=== PATIENT | male | born 1970 | race Caucasian/White ===

== ENCOUNTER 2018-03-21 18:51 | Emergency (ER) | payer BC ==
--- NOTE | 2018-03-21 19:33 | EDM.PDOC ---
ED HPI GENERAL MEDICAL PROBLEM - General Chief Complaint: Abdominal Pain Stated Complaint: LOWER LT QUADRANT PAIN Time Seen by Provider: 03/21/18 19:23 Source of Information: Reports: Patient, RN Notes Reviewed History Limitations: Reports: No Limitations - History of Present Illness INITIAL COMMENTS - FREE TEXT/NARRATIVE: 47-year-old gentleman presents to the emergency department with complaint of abdominal pain left lower quadrant he is traveling from [place] states the pain really started this morning has progressively gotten worse does have a history of urinary tract infection a couple years ago which presented similarly treated with antibiotics and improved he has never had a colonoscopy only surgery is an appendectomy 20 years ago. He is experiencing nausea pain is worse with ambulation Left Lower Abdomen Pain Score (Numeric/FACES): 10 - Related Data Allergies Allergy/AdvReac Type Severity Reaction Status Date / Time No Known Allergies Allergy Verified 03/21/18 19:15 Home Meds: Home Meds NK [No Known Home Meds] 03/21/18 [History] Past Medical History - Past Surgical History HEENT Surgical History: Reports: Adenoidectomy, Tonsillectomy, Other (See Below) Other HEENT Surgeries/Procedures: R ear surgery to fix growth of skin. GI Surgical History: Reports: Appendectomy Musculoskeletal Surgical History: Reports: Arthroscopic Knee Social & Family History - Tobacco Use Smoking Status *Q: Never Smoker - Recreational Drug Use Recreational Drug Use: No ED ROS GENERAL - Review of Systems Review Of Systems: See Below Constitutional: Reports: Fever. Denies: Chills HEENT: Reports: No Symptoms Respiratory: Reports: No Symptoms Cardiovascular: Reports: No Symptoms GI/Abdominal: Reports: Abdominal Pain, Nausea. Denies: Constipation, Diarrhea, Flatus, Vomiting : Reports: No Symptoms Musculoskeletal: Reports: No Symptoms Skin: Reports: No Symptoms Neurological: Reports: No Symptoms ED EXAM, GI/ABD - Physical Exam Exam: See Below Text/Narrative:: General: Male, not in any distress, alert and oriented x3 HEENT: head is atraumatic normocephalic, eyes pupils equal round reactive to light, sclera clear no conjunctivitis appreciated. Ears tympanic membranes clear and fraser landmarks and light reflex are present bilaterally canals are clear. Nose no septal deviation, nares are clear, no blood present. Mouth mucosa is moist and pink no erythema or exudate noted in soft palate, tongue is midline uvula is midline, dentition is intact. Neck: Supple no thyromegaly no tracheal deviation. Nodes: Cervical nodes subclavicular nodes nontender no palpable lymphadenopathy noted. Lungs: clear to auscultation bilaterally with symmetrical respirations, no adventitious noise appreciated. CV: Regular rate and rhythm S1 and S2 appreciated no murmurs rubs or gallops noted. Abdomen: Soft, tender left lower quadrant, no palpable masses or organomegaly appreciated, no distention no guarding bowel sounds are present, . Neuro: Cranial nerves II through XII grossly intact Skin: Warm and dry, intact Extremities: No lower extremity edema appreciated, . Course - Vital Signs Last Recorded V/S: Last Vital Signs Temp 100.4 F 03/21/18 22:28 Pulse 90 03/21/18 22:28 Resp 16 03/21/18 22:28 BP 125/71 03/21/18 22:28 Pulse Ox 88 L 03/21/18 21:17 - Orders/Labs/Meds Orders: Active Orders 24 hr Category Date Time Status Peripheral IV Care [RC] . DIRECTED Care 03/21/18 20:10 Active Abdomen Pelvis w Cont [CT] Stat Exams 03/21/18 20:10 Taken Piperacillin/Tazobactam [Zosyn] 3.375 gm Med 03/21/18 22:00 Active Sodium Chloride 0.9% [Normal Saline] 50 ml IV Q6H Sodium Chloride 0.9% [Saline Flush] Med 03/21/18 20:10 Active 10 ml FLUSH ASDIRECTED PRN Peripheral IV Insertion Adult [OM.PC] Urgent Oth 03/21/18 20:09 Ordered Medication Orders Piperacillin Sod/Tazobactam (Sod 3.375 gm/ Sodium Chloride) 50 mls @ 100 mls/ hr IV Q6H [facility] Last Admin: 03/21/18 22:26 Dose: 100 mls/hr Sodium Chloride (Saline Flush) 10 ml FLUSH ASDIRECTED PRN PRN Reason: Keep Vein Open Last Admin: 03/21/18 20:55 Dose: 10 ml Labs: Laboratory Tests 03/21/18 03/21/18 03/21/18 Range/Units 19:24 19:42 19:42 WBC 16.1 H (4.5-11.0) K/uL RBC 5.68 (4.30-5.90) M/uL Hgb 16.4 H (12.0-15.0) g/dL Hct 46.8 (40.0-54.0) % MCV 82 (80-98) fL MCH 29 (27-31) pg MCHC 35 (32-36) % Plt Count 292 (150-400) K/uL Neut % (Auto) 76 H (36-66) % Lymph % (Auto) 11 L (24-44) % Jefferson % (Auto) 12 H (2-6) % Eos % (Auto) 1 L (2-4) % Baso % (Auto) 0 (0-1) % Sodium 136 L (140-148) mmol/L Potassium 4.4 (3.6-5.2) mmol/L Chloride 100 (100-108) mmol/L Carbon Dioxide 30 (21-32) mmol/L Anion Gap 10.4 (5.0-14.0) mmol/L BUN 12 (7-18) mg/dL Creatinine 1.2 (0.8-1.3) mg/dL Est Cr Clr Drug Dosing 72.04 mL/min Estimated GFR (MDRD) > 60 (>60) Glucose 109 H (74-106) mg/dL Lactic Acid (0.4-2.0) mmol/L Calcium 8.7 (8.5-10.1) mg/dL Total Bilirubin 1.7 H (0.2-1.0) mg/dL AST 32 (15-37) U/L ALT 52 (12-78) U/L Alkaline Phosphatase 115 (46-116) U/L Total Protein 8.1 (6.4-8.2) g/dL Albumin 3.6 (3.4-5.0) g/dL Globulin 4.5 H (2.3-3.5) g/dL Albumin/Globulin Ratio 0.8 L (1.2-2.2) Lipase 153 (73-393) U/L Urine Color Yellow Urine Appearance Clear Urine pH 6.0 (4.5-8.0) Ur Specific Nye 1.020 (1.008-1.030) Urine Protein Negative (NEGATIVE) mg/dL Urine Glucose (UA) Normal (NEGATIVE) mg/dL Urine Ketones Negative (NEGATIVE) mg/dL Urine Occult Blood Negative (NEGATIVE) Urine Nitrite Negative (NEGAITVE) Urine Bilirubin Small (NEGATIVE) Urine Urobilinogen 1 (NORMAL) mg/dL Ur Leukocyte Esterase Negative (NEGATIVE) Urine RBC 0-5 (0-5) Urine WBC Not seen (0-5) Ur Epithelial Cells Rare Amorphous Sediment Not seen Urine Bacteria Few Urine Mucus Not seen 03/21/18 Range/Units 19:42 WBC (4.5-11.0) K/uL RBC (4.30-5.90) M/uL Hgb (12.0-15.0) g/dL Hct (40.0-54.0) % MCV (80-98) fL MCH (27-31) pg MCHC (32-36) % Plt Count (150-400) K/uL Neut % (Auto) (36-66) % Lymph % (Auto) (24-44) % Jefferson % (Auto) (2-6) % Eos % (Auto) (2-4) % Baso % (Auto) (0-1) % Sodium (140-148) mmol/L Potassium (3.6-5.2) mmol/L Chloride (100-108) mmol/L Carbon Dioxide (21-32) mmol/L Anion Gap (5.0-14.0) mmol/L BUN (7-18) mg/dL Creatinine (0.8-1.3) mg/dL Est Cr Clr Drug Dosing mL/min Estimated GFR (MDRD) (>60) Glucose (74-106) mg/dL Lactic Acid 1.7 (0.4-2.0) mmol/L Calcium (8.5-10.1) mg/dL Total Bilirubin (0.2-1.0) mg/dL AST (15-37) U/L ALT (12-78) U/L Alkaline Phosphatase (46-116) U/L Total Protein (6.4-8.2) g/dL Albumin (3.4-5.0) g/dL Globulin (2.3-3.5) g/dL Albumin/Globulin Ratio (1.2-2.2) Lipase (73-393) U/L Urine Color Urine Appearance Urine pH (4.5-8.0) Ur Specific Nye (1.008-1.030) Urine Protein (NEGATIVE) mg/dL Urine Glucose (UA) (NEGATIVE) mg/dL Urine Ketones (NEGATIVE) mg/dL Urine Occult Blood (NEGATIVE) Urine Nitrite (NEGAITVE) Urine Bilirubin (NEGATIVE) Urine Urobilinogen (NORMAL) mg/dL Ur Leukocyte Esterase (NEGATIVE) Urine RBC (0-5) Urine WBC (0-5) Ur Epithelial Cells Amorphous Sediment Urine Bacteria Urine Mucus Meds: Medications Generic Name Dose Route Start Last Admin Trade Name Freq PRN Reason Stop Dose Admin Piperacillin Sod/Tazobactam 50 mls @ 100 mls/hr 03/21/18 22:00 03/21/18 22:26 Sod 3.375 gm/ Sodium Chloride IV 100 mls/hr Q6H KYLEIGH Administration Sodium Chloride 10 ml 03/21/18 20:10 03/21/18 20:55 Saline Flush FLUSH 10 ml ASDIRECTED PRN Administration Keep Vein Open Discontinued Medications Generic Name Dose Route Start Last Admin Trade Name Fabianoq PRN Reason Stop Dose Admin Fentanyl 50 mcg 03/21/18 21:02 03/21/18 21:15 Sublimaze IVPUSH 03/21/18 21:03 50 mcg ONETIME ONE Administration Lactated Ringer's 1,000 mls @ 999 mls/hr 03/21/18 20:09 03/21/18 21:00 Ringers, Lactated IV 03/21/18 21:09 999 mls/hr BOLUS ONE Administration Sodium Chloride 75 mls @ 3.5 mls/sec 03/21/18 20:30 03/21/18 21:21 Normal Saline IV 03/21/18 20:31 Not Given ONETIME ONE Ibuprofen 600 mg 03/21/18 21:52 03/21/18 22:26 Motrin PO 03/21/18 21:53 600 mg ONETIME ONE Administration Iopamidol 135 ml 03/21/18 20:30 03/21/18 20:54 Isovue-300 (61%) IV 135 ml . DIRECTED KYLEIGH Administration Ondansetron HCl 4 mg 03/21/18 21:02 03/21/18 21:12 Zofran IVPUSH 03/21/18 21:03 4 mg ONETIME ONE Administration Sodium Chloride 10 ml 03/21/18 20:30 03/21/18 21:00 Saline Flush FLUSH 03/21/18 20:31 10 ml ONETIME ONE Administration Departure - Departure Time of Disposition: 23:18 Disposition: Home, Self-Care 01 Condition: Good Clinical Impression: Diverticulitis large intestine Qualifiers: Diverticulitis bleeding: without bleeding Diverticulitis complication: without perforation or abscess Qualified Code(s): K57.32 - Diverticulitis of large intestine without perforation or abscess without bleeding - Discharge Information Referrals: PCP,None [Primary Care Provider] - Forms: ED Department Discharge Additional Instructions: Take full course of antibiotics, use ibuprofen as needed for baseline pain control, use hydrocodone for breakthrough pain please follow-up with your primary care provider upon return home - My Orders Last 24 Hours: My Active Orders 03/21/18 20:09 Peripheral IV Insertion Adult [OM.PC] Urgent 03/21/18 20:10 Peripheral IV Care [RC] . DIRECTED Abdomen Pelvis w Cont [CT] Stat Sodium Chloride 0.9% [Saline Flush] 10 ml FLUSH ASDIRECTED PRN 03/21/18 22:00 Piperacillin/Tazobactam [Zosyn] 3.375 gm Sodium Chloride 0.9% [Normal Saline] 50 ml IV Q6H - Assessment/Plan Last 24 Hours: My Active Orders 03/21/18 20:09 Peripheral IV Insertion Adult [OM.PC] Urgent 03/21/18 20:10 Peripheral IV Care [RC] . DIRECTED Abdomen Pelvis w Cont [CT] Stat Sodium Chloride 0.9% [Saline Flush] 10 ml FLUSH ASDIRECTED PRN 03/21/18 22:00 Piperacillin/Tazobactam [Zosyn] 3.375 gm Sodium Chloride 0.9% [Normal Saline] 50 ml IV Q6H Plan: Assessment Acuity = acute Site and laterality = diverticulitis Etiology = probable bacterial cause Manifestations = abdominal pain, nausea now improved Location of injury = Home Lab values = WBC elevated 16.1 consistent leukocytosis, total bilirubin elevated 1.7 consistent hyperbilirubinemia lactic acid normal CT scan describes acute diverticulitis no abscess Plan Did review CT scan results with him he did receive IV Zosyn while in the emergency department prescription written for hydrocodone 5/325 one tab by mouth 3 times a day when necessary total #10 then Augmentin 875 mg by mouth twice a day 10 days follow-up with primary care upon return home This note was dictated using [employer] voice recognition software please call with any questions on syntax or grammar.
[2018-03-21] MEDS: Iopamidol 612 MG/ML 150 ML Bottle IV SCH (20:54)
[2018-03-21] MEDS: Sodium Chloride 0.9% 10 ML Syringe FLUSH PRN (20:55)
[2018-03-21] MEDS: Sodium Chloride 0.9% 10 ML Syringe FLUSH ONE (21:00)
[2018-03-21] MEDS: Lactated Ringers 1,000 ML IV ONE (21:00)
[2018-03-21] MEDS: Ondansetron 4 MG/2 ML SDV IVPUSH ONE (21:12)
[2018-03-21] MEDS: fentaNYL 100 MCG/2 ML SDV IVPUSH ONE (21:15)
[2018-03-21] MEDS: Sodium Chloride 0.9% 75 ML IV ONE (21:21)
[2018-03-21] MEDS: Piperacillin/Tazobactam 3.375 GM in Sodium Chloride 0.9% 50 ML IV SCH (22:26)
[2018-03-21] MEDS: Ibuprofen 600 MG Tab PO ONE (22:26)
== END 2018-03-21 23:48 | disposition home or self-care (01) ==
LOC: JP.ED 18:51
DX: K57.32 Diverticulitis of large intestine without perforation or abscess without bleeding (principal)
CPT/HCPCS: 36415; 74177; 80053; 81001; 83605; 83690; 85025; 96361; 96365; 96375; 99284-25; A9270-GY; J2405; J2543; J3010; J7050; J7120